=== PATIENT | male | born 1965 | race Caucasian/White ===

== ENCOUNTER 2016-07-31 06:53 | Day surgery (SDC) | payer OTHER ==
[2016-07-30 10:23] VITALS: BMI 32.9
[2016-07-31] MEDS ORDERED: DESFLURANE GAS 240 ML BOTTLE IH ONE (07:19)
[2016-07-31] MEDS ORDERED: ceFAZolin SODIUM 1 GM VIAL ONE (07:33)
[2016-07-31] MEDS ORDERED: PROPOFOL 20 ML ONE (07:33)
[2016-07-31] MEDS ORDERED: SODIUM CHLORIDE 0.9% P/F 10 ML VIAL IJ ONE (07:33)
[2016-07-31] MEDS ORDERED: DEXAMETHASONE SOD PHOSPHATE 4 MG/1 ML VIAL ONE (07:33)
[2016-07-31] MEDS ORDERED: KETOROLAC TROMETHAMINE 30 MG/1 ML VIAL ONE (07:33)
[2016-07-31] MEDS ORDERED: MIDAZOLAM HCL 2 MG/2 ML SINGLE DOSE VIAL ONE (07:34)
[2016-07-31] MEDS ORDERED: ROCURONIUM BROMIDE 50 MG/5 ML VIAL ONE ×2 (07:34→09:52)
[2016-07-31] MEDS ORDERED: ePHEDrine SULFATE 50 MG/1 ML AMPULE ONE (07:36)
[2016-07-31] MEDS ORDERED: ceFAZolin SODIUM 1 GM VIAL IVPB ONE (08:21)
--- NOTE | 2016-07-31 08:22 | HP ---
Satellite [facility] - Chief Complaint Chief Complaint: Bilateral groin pain and swelling History of Present Illness: 51 male with bilateral inguinal hernias, possible ventral/umbilical hernia History Source: Patient Limitations to Obtaining History: No Limitations - Past Medical History Allergies/Adverse Reactions: Allergies Allergy/AdvReac Type Severity Reaction Status Date / Time No Known Allergies Allergy Verified 07/31/16 07:31 Cardiovascular: Yes: HTN - Current Medications Current Medications: Home Medications Medication Instructions Recorded Cholecalciferol (Vitamin D3) 4,000 unit PO DAILY capsule 07/03/16 [Vitamin D3] Tamsulosin HCl 0.4 mg PO DAILY 07/24/16 Docusate Sodium [Colace -] 100 mg PO TID #90 capsule 07/31/16 Oxycodone HCl/Acetaminophen 1 - 2 tab PO Q6H #28 tab MDD 4 07/31/16 [Percocet 5-325 mg Tablet] Satellite Physical Exam - Physical Examination Vital Signs: Vital Signs Period Temp Pulse Resp BP Sys/Burton Pulse Ox Last 24 Hr 97.8 F-97.8 F 89-89 20-20 130-130/76-76 100 General Appearance: Well Nourished Lung: Normal air movement Heart: Regular rate & rhythm Abdomen: Soft Neurological: Alert, Oriented Satellite Impression/Plan - Impression/Plan Impression: Bilateral inguinal hernia, possible umbilical/ventral hernia Operative Procedure: Robotic possible open repair of bilateral inguinal hernias with mesh possible umbilical/ventral hernia repair with mesh Date to be Performed: 07/31/16
[2016-07-31] MEDS ORDERED: NEOSTIGMINE METHYLSULFATE 0.5 MG/ML - 10 ML MDV ONE (10:19)
[2016-07-31] MEDS ORDERED: GLYCOPYRROLATE 0.2 MG/1 ML VIAL ONE (10:19)
[2016-07-31] MEDS ORDERED: BUPIVACAINE HCL/PF 0.5% (5MG/ML) 10 ML VIAL IJ ONE (10:25)
[2016-07-31] MEDS ORDERED: BUPIVACAINE HCL/PF 0.5% (5MG/ML) 10 ML VIAL ONE (10:27)
--- NOTE | 2016-07-31 10:40 | OP ---
Operative Note - Note: Operative Date: 07/31/16 Pre-Operative Diagnosis: Bilateral inguinal hernias, possible umbilical/ventral hernia Operation: Robotic bilateral inguinal hernia repair with mesh, open umbilical hernia repair Findings: Bilateral indirect hernias, large right lipoma of the cord Implants: Symbotex mesh x 2 Post-Operative Diagnosis: Other (Bilateral inguinal hernia, umbilical hernia) Surgeon: Niko Giles Line Construction Superintendent: Luiza Mukherjee Anesthesia: General Specimens Removed: None Estimated Blood Loss (mls): 5 Operative Report Dictated: Yes
[2016-07-31] MEDS ORDERED: ACETAMINOPHEN 325 MG TABLET (FP) PO PRN (10:41)
[2016-07-31] MEDS ORDERED: ONDANSETRON 4 MG/2 ML VIAL IVPB PRN (10:41)
[2016-07-31] MEDS ORDERED: HYDROmorphone HCL CARPU-JECT 1 MG/1 ML DISP.SYRIN IVPB PRN (10:41)
[2016-07-31] MEDS ORDERED: D5-1/2NS+20 MEQ KCL - 1,000 ML IV SCH (10:45)
[2016-07-31 10:54] VITALS: TEMP 98
[2016-07-31] MEDS ORDERED: oxyCODONE HCL 5 MG TABLET PO PRN (11:06)
[2016-07-31] MEDS ORDERED: ACETAMINOPHEN 1000 MG/100 ML VIAL (NON FORMULARY) IVPB ONE (11:07)
[2016-07-31] MEDS ORDERED: LACTATED RINGERS SOLUTION 1,000 ML IV SCH (11:15)
--- NOTE | 2016-07-31 11:22 | SURG ---
Surgery Chief Internal Auditor Note Chief Internal Auditor: Luiza Mukherjee PA-C Date of Service: 07/31/16 Diagnosis: Bilateral inguinal hernias, possible umbilical/ventral hernia Procedure: Robotic bilateral inguinal hernia repair with mesh, open umbilical hernia repair I was present for the entirety of the operative procedure. For further detail, please refer to operative report. Visit type - Case Type Case Type: Scheduled Admission - Emergency Emergency Visit: No - New patient This patient is new to me today: Yes Date on this admission: 07/31/16 - Critical Care Critical Care patient: No
[2016-07-31 16:03] VITALS: BP 125/66; PULSE 81
--- NOTE | 2016-07-31 18:28 | SPEC ---
DATE OF OPERATION: 07/31/2016 PREOPERATIVE DIAGNOSES: Bilateral inguinal hernias, possible umbilical/ventral hernia. PROCEDURE: Robotic repair of bilateral inguinal hernias with mesh and open primary umbilical hernia repair. POSTOPERATIVE DIAGNOSES: Bilateral inguinal hernia with indirect defects and umbilical hernia. SURGEON: Niko Giles MD CEMENT FITTINGS MAKER: EVETTE Santiago SPECIMEN: None. ESTIMATED BLOOD LOSS: Was 5 mL. DRAINS: None. ANESTHESIA: GET MESH: Symbotex x 2 REASON FOR PROCEDURE: This is a 51-year-old gentleman who presented to the office for complaints of bilateral groin pain and swelling. On examination, he was noted to have bilateral inguinal hernias. In addition, he had complaints near his umbilicus/upper abdomen near the midline, and a question of a 3rd hernia was entertained. After describing the different options, he decided to proceed with a robotic bilateral inguinal hernia repair with mesh, possible open, possible umbilical ventral hernia repair with mesh. RISKS AND BENEFITS: The risks and benefits of Robotic, possible open right inguinal hernia repair, possible bilateral inguinal hernia repair, with mesh were explained. These included bleeding, infection, recurrence of hernia, SD, DVT, PE, new hernia, mesh infection, injury to surrounding structures including the colon, bowel, bladder, ureter, spermatic cord, spermatic vessels, vas deferens, vessel injury, nerve injury, testicular injury including atrophy and possible loss of the testicle, and as some of the possible complications. The patient understood and signed informed consent. DESCRIPTION OF PROCEDURE: The patient was placed supine on the operating room table. Patient underwent general endotracheal intubation. A Diaz catheter was inserted by the nursing staff. The arms were tucked at the side, and he was placed on a beanbag device. The abdomen was prepped and draped in the usual sterile fashion. A time-out was performed. A periumbilical incision was made, and entrance into the abdominal cavity was obtained using an 8-mm robotic optical trocar under direct visualization with a laparoscope. Pneumoperitoneum was established. Subsequently, two additional 8-mm trocars were placed, one approximately 6-7 cm to the left of the umbilicus and one 6-7 cm to the right of the umbilicus. The patient was placed in steep Trendelenburg, [id number] position. The robot was brought over the field and docked. Dissection was performed at the console. The peritoneum was opened using robotic EndoShears. The preperitoneal space over the right inguinal region was dissected. The epigastric vessels were identified. These were dissected towards the anterior abdominal wall. Dissection in the preperitoneal space was continued from the medial umbilical ligament towards the anterior-superior iliac spine. Medially, dissection was performed until Srinivas's ligament and the pubis were identified. Lateral to this, the spermatic cord structures including the vas deferens were identified. The contents of the hernia sac were identified and dissected down to the retroperitoneum. At this point, hemostasis was identified. Again, all of the hernia contents were noted to be completely dissected and noted to have no retraction back to its original position. A Symbotex mesh was then chosen, irrigated, and inserted into the abdominal cavity to cover the entire myopectineal orifice. This mesh was secured medially at the pubis and superolaterally to the abdominal wall with sutures. The mesh was noted to be in good position. The hernia was again noted to be fully reduced and without any tension. At this point, the peritoneal flap was closed using a 2-0 V-Loc suture. The same technique was used for the left inguinal hernia. Once both inguinal hernias were repaired and the robotic instruments were removed and the robot undocked, pneumoperitoneum was desufflated. An umbilical hernia defect was palpated, and this was fixed, primarily the area dissected down to the level of the fascia. All contents were reduced and the hernia defect closed with a 0 Vicryl suture in [id number] fashion. All incisions were injected with Marcaine and closed using 4-0 Biosyn. The Diaz catheter was removed at the end of the case. Patient tolerated the procedure well and transferred to the recovery room in stable condition. Mallory [id number]
== END 2016-07-31 16:06 | disposition home or self-care (01) ==
LOC: JASU-SURG 06:53
PROVIDERS: ATTEND Surgery
PROC: 8E0W4CZ Robotic Assisted Procedure of Trunk Region, Percutaneous Endoscopic Approach (ICD-10-PCS; 2016-07-31)
PROC: 0WUF0JZ Supplement Abdominal Wall with Synthetic Substitute, Open Approach (ICD-10-PCS; 2016-07-31)
PROC: 0YUA4JZ Supplement Bilateral Inguinal Region with Synthetic Substitute, Percutaneous Endoscopic Approach (ICD-10-PCS; principal; 2016-07-31 08:00)
DX: K40.20 Bilateral inguinal hernia, without obstruction or gangrene, not specified as recurrent (principal); K42.9 Umbilical hernia without obstruction or gangrene
CPT/HCPCS: 49585; 49650; S2900; 94760

== ENCOUNTER 2021-09-16 11:00 | Emergency (ER) | payer OTHER ==
[2021-09-16 11:13] VITALS: BP 154/103; TEMP 98.5; BMI 30.9
[2021-09-16 11:39] LABS: HEMATOCRIT 47.1 % (35.4-49); HEMOGLOBIN 16.6 G/dL (11.7-16.9); MCH 31.7 pg (25.7-33.7); MCHC 35.3 g/dl (32.0-35.9); MEAN CELL VOLUME 89.8 fl (80-96); MEAN PLT VOLUME 8.3 fl (7.5-11.1); PLATELET COUNT 169.5 10^3/uL (134-434); RBC 5.25 10^6/uL (4.00-5.60); WHITE BLOOD COUNT 3.9 10^3/uL (4.0-10.8)
[2021-09-16 12:13] LABS: BILIRUBIN,TOTAL 0.8 mg/dl (0.2-1); CALCIUM 8.5 mg/dl (8.5-10); CREATININE 0.9 mg/dl (0.55-1.3); TOT PROT 6.6 g/dl (6.4-8.2)
[2021-09-16 12:31] VITALS: PULSE 102
[2021-09-17 14:13] LABS: SARS-CoV-2 NAA Detected (Not Detected)
== END 2021-09-16 12:33 | disposition home or self-care (01) ==
LOC: FER 11:00
DX: J40 Bronchitis, not specified as acute or chronic (principal)
CPT/HCPCS: 36415; 71046-TC-FY; 80053; 85027; 87804; 99284-25; C9803-CS; U0003; U0005

== ENCOUNTER 2024-03-10 17:48 | Emergency (ER) | payer OTHER ==
[2024-03-10 17:52] VITALS: BMI 29.2
[2024-03-10 18:02] VITALS: PULSE 81; RESP 17; TEMP 97.9
[2024-03-10 19:23] VITALS: BP 172/113
== END 2024-03-10 19:48 | disposition home or self-care (01) ==
LOC: FER 17:48
DX: F41.9 Anxiety disorder, unspecified (principal); L29.9 Pruritus, unspecified; T60.3X1A Toxic effect of herbicides and fungicides, accidental (unintentional), initial encounter
CPT/HCPCS: 99283-25

== ENCOUNTER 2024-03-16 14:04 | Emergency (ER) | payer OTHER ==
[2024-03-16 14:37] VITALS: TEMP 98.6; BMI 30.9
[2024-03-16] MEDS ORDERED: IBUPROFEN 600 MG TABLET (FP) PO ONE (14:41)
[2024-03-16] MEDS: IBUPROFEN 600 MG TABLET (FP) PO ONE (14:42)
[2024-03-16 15:29] LABS: HEMATOCRIT 52.2 % (35.4-49); HEMOGLOBIN 17.4 G/dL (11.7-16.9); MCH 31.1 pg (25.7-33.7); MCHC 33.3 g/dl (32.0-35.9); MEAN CELL VOLUME 93.4 fl (80-96); MEAN PLT VOLUME 9.4 fl (7.5-11.1); PLATELET COUNT 212.4 10^3/uL (134-434); RBC 5.59 10^6/uL (4.00-5.60); RDW 14.2 % (11.9-15.9); WHITE BLOOD COUNT 10.8 10^3/uL (4.0-10.8)
[2024-03-16 15:37] LABS: BILIRUBIN,TOTAL 0.5 mg/dl (0.2-1); CALCIUM 9.7 mg/dl (8.5-10.1); CREATININE 0.9 mg/dl (0.6-1.3); TOT PROT 6.8 g/dl (6.4-8.2)
[2024-03-16 16:02] VITALS: BP 170/105; PULSE 80; RESP 16
[2024-03-16 16:22] LABS: PLATELET ESTIMATE ADEQUATE
== END 2024-03-16 16:04 | disposition home or self-care (01) ==
LOC: FER 14:04 → SUPCPDRO 14:04 → FER 16:04
DX: R80.9 Proteinuria, unspecified (principal); R10.9 Unspecified abdominal pain
CPT/HCPCS: 36415; 80053; 81003; 85027; 87086; 99283-25